=== PATIENT | male | born 1975 | race Caucasian/White ===

== ENCOUNTER 2017-04-24 14:08 | Emergency (ER) | payer OTHER ==
[~2017-04-24] VITALS: Ht 170.2 cm; Wt 95.5 kg
[2017-04-24] MEDS ORDERED: ESOM1CAP5 PO (14:14)
[2017-04-24] MEDS ORDERED: LOSA50TA20 PO (14:14)
[2017-04-24] MEDS ORDERED: METF500T13 PO (14:14)
[2017-04-24] MEDS ORDERED: NS 1,000 ML IV ONE (14:45)
[2017-04-24] MEDS ORDERED: KETOROLAC 30 MG/ML VIAL (J1885) IV ONE (14:45)
[2017-04-24 15:52] LABS: CALCIUM LEVEL 9.5 MG/DL (8.5-10.1); CREATININE FOR GFR 1.48 MG/DL (0.70-1.30); GLOMERULAR FILTRATION RATE 55.5 (>60); POTASSIUM SERUM 4.2 MEQ/L (3.5-5.1)
[2017-04-24 16:11] VITALS: BP 148/85
[2017-04-24] MEDS ORDERED: NORC1TAB4 PO (16:44)
== END 2017-04-24 16:57 | disposition home or self-care (01) ==
LOC: M ED 14:08
DX: N20.0 Calculus of kidney (principal); E11.9 Type 2 diabetes mellitus without complications; I10 Essential (primary) hypertension; K21.9 Gastro-esophageal reflux disease without esophagitis; Z79.899 Other long term (current) drug therapy; Z79.84 Long term (current) use of oral hypoglycemic drugs
CPT/HCPCS: 80048; 81001; 96361; 96374; 99284; J1885

== ENCOUNTER → 2017-05-27 | Outpatient (CLI) | payer OTHER ==
[~2017-05-27] MED LIST: ESOM1CAP5 PO; LOSA50TA20 PO; METF500T13 PO; NORC1TAB4 PO
--- NOTE | 2017-05-27 12:08 | REP ---
KUB ABDOMEN AND PELVIS: Two KUB films of the abdomen and pelvis were performed. Bowel gas pattern is nonspecific. A few mildly dilated small bowel loops are seen in the upper abdomen. There are multiple small calcific densities to the left of the L4 and L5 vertebral bodies. These may represent multiple subcentimeter stones in the mid left ureter. There appears to be a small subcentimeter stone in the lower pole of the left renal collecting system. There may also be similar small subcentimeter stone in the upper pole as well as the mid aspect of the left kidney. Signed by William Torrez MD 05/27/2017 05:24 P
== END ==
LOC: M RAD 11:13
PROVIDERS: ATTEND Urology
DX: N20.1 Calculus of ureter (principal)

== ENCOUNTER → 2017-10-28 | Outpatient (REF) | payer OTHER ==
[2017-10-30 00:11] LABS: TESTOSTERONE FREE (DIRECT) 16.3 pg/mL (6.8-21.5)
== END ==
LOC: M LAB REF 12:11
DX: N52.9 Male erectile dysfunction, unspecified (principal)
CPT/HCPCS: 84403